=== PATIENT | female | born 1990 | race Caucasian/White ===

== ENCOUNTER 2016-07-17 07:30 | Inpatient (IN) | payer OTHER ==
[~2016-07-17] VITALS: Ht 177.8 cm; Wt 84.4 kg
[2016-07-26] VITALS (9 sets, daily range): BP systolic 97–133; RESP 16; TEMP 97.1; Ht 177.8 cm; Wt 84.4 kg
[2016-07-26] MEDS ORDERED: FAMOTIDINE 20 MG INJ IV PRN (08:20)
[2016-07-26] MEDS ORDERED: CLINDAMYCIN 900 MG in DEXTROSE 5% 50 ML IV PRN (08:20)
[2016-07-26] MEDS ORDERED: LACT RINGERS 1,000 ML IV SCH (08:20)
[2016-07-26] MEDS ORDERED: ONDANSETRON 4 MG VIAL IV PUSH PRN (08:20)
[2016-07-26] MEDS ORDERED: TERBUTALINE 1 MG/ML VIAL SUBQ PRN (08:20)
[2016-07-26] MEDS ORDERED: LIDOCAINE 1% BUFFERED 1 ML SYR INTRADERM PRN (08:20)
[2016-07-26] MEDS ORDERED: LIDOCAINE 1% 30 ML PF INFILTRATE ONE (08:20)
[2016-07-26] MEDS ORDERED: OXYTOCIN 15 UNITS/250 ML NS 250 ML IV SCH ×2 (08:20)
[2016-07-26] MEDS ORDERED: ACETAMINOPHEN 325 MG TAB PO PRN (08:20)
[2016-07-26] MEDS ORDERED: METOCLOPRAMIDE 10 MG/2 ML VIAL IV PUSH PRN (08:20)
[2016-07-26] MEDS ORDERED: ALU/MAG/SIM 30 ML UDC PO PRN (08:20)
[2016-07-26] MEDS ORDERED: PROMETHAZINE 25 MG/ML VIAL IV PRN (08:20)
[2016-07-26] MEDS ORDERED: PHARMACY TO DOSE GENTAMICIN IV PRN (08:20)
[2016-07-26] MEDS ORDERED: FAMOTIDINE 20 MG TAB PO PRN (08:20)
[2016-07-26] MEDS ORDERED: **NOTE TO NURSE XX SCH (09:00)
[2016-07-26] MEDS ORDERED: [UNRECOGNIZED DRUG - REMARK] XX SCH (11:18)
[2016-07-26] MEDS ORDERED: ROPIV/FENT 0.2%-2MCG/ML 100 ML EPIDURAL ONE (11:38)
[2016-07-26] MEDS ORDERED: FENTANYL 100 MCG/2 ML AMP ONE (11:39)
[2016-07-26] MEDS ORDERED: GENTAMICIN 420 MG in SODIUM CHLORIDE 0.9% 100 ML IV PRN (11:50)
[2016-07-26] MEDS ORDERED: ROPIV/FENT 0.2%-2MCG/ML 100 ML EPIDURAL SCH (12:25)
[2016-07-26] MEDS ORDERED: LACT RINGERS 500 ML IV ONE (12:25)
[2016-07-26] MEDS ORDERED: LACT RINGERS 500 ML IV PRN (12:25)
[2016-07-26] MEDS ORDERED: SODIUM CHLORIDE 0.9% 500 ML IV PRN (12:25)
[2016-07-26] MEDS ORDERED: **ONLY ANESTEHSIA MAY ORDER OPIATES WHILE ON EPIDURAL XX SCH (12:25)
[2016-07-26] MEDS ORDERED: FENTANYL 100 MCG/2 ML AMP EPIDURAL ONE (12:25)
[2016-07-26] MEDS ORDERED: BISACODYL 10 MG SUPP RECTAL PRN (17:05)
[2016-07-26] MEDS ORDERED: DERMOPLAST SPRAY TOPICAL PRN (17:05)
[2016-07-26] MEDS ORDERED: ASTRINGENT MED PADS 40'S TOPICAL PRN (17:05)
[2016-07-26] MEDS ORDERED: ZOLPIDEM 5 MG TAB PO PRN (17:05)
[2016-07-26] MEDS ORDERED: SALINE FLUSH 10 ML FLUSH PRN (17:05)
[2016-07-26] MEDS ORDERED: Ibuprofen 600 MG TAB ONE (17:19)
[2016-07-26] MEDS ORDERED: DERMOPLAST SPRAY TOPICAL ONE (17:19)
[2016-07-26] MEDS ORDERED: ASTRINGENT MED PADS 40'S TOPICAL ONE (17:19)
[2016-07-26] MEDS: Ibuprofen 600 MG TAB PO SCH (17:36)
[2016-07-26] MEDS: SALINE FLUSH 10 ML FLUSH SCH (19:52)
[2016-07-27] MEDS: Ibuprofen 600 MG TAB PO SCH ×4 (00:44→18:09)
[2016-07-27] MEDS: MAG HYDROX 30 ML UDC PO PRN ×2 (00:44→09:42)
[2016-07-27 01:53] VITALS: BP_SYST 105; RESP 17; TEMP 97.3
[2016-07-27 05:26] VITALS: BP_SYST 112; RESP 16; TEMP 97.5
[2016-07-27] MEDS: SODIUM CHLORIDE 0.9% FLUSH BAG 500 ML IV SCH (06:00)
[2016-07-27] MEDS: SALINE FLUSH 10 ML FLUSH SCH ×2 (08:00→20:00)
[2016-07-27 09:26] VITALS: BP_SYST 104; RESP 18; TEMP 98.7
[2016-07-27] MEDS: DOCUSATE SOD 100 MG CAP PO SCH (09:42)
[2016-07-27 13:46] VITALS: BP_SYST 100; RESP 16; TEMP 97.8
[2016-07-27 17:51] VITALS: BP_SYST 103; RESP 18; TEMP 97.5
[2016-07-28 05:36] VITALS: BP_SYST 107; RESP 16; TEMP 97.4
[2016-07-28] MEDS: Ibuprofen 600 MG TAB PO SCH ×2 (05:37)
[2016-07-28] MEDS: SODIUM CHLORIDE 0.9% FLUSH BAG 500 ML IV SCH (06:00)
[2016-07-28] MEDS: SALINE FLUSH 10 ML FLUSH SCH (08:00)
[2016-07-28] MEDS: DOCUSATE SOD 100 MG CAP PO SCH (08:18)
[2016-07-28 09:00] VITALS: BP_SYST 109; RESP 16; TEMP 98
[2016-07-28 12:59] VITALS: BP_SYST 109; RESP 16; TEMP 98
== END 2016-07-28 13:29 | disposition home or self-care (01) | DRG 775 ==
LOC: LD 07-26 07:37 → OB 07-26 17:38
PROVIDERS: ADMIT Obstetrics & Gynecology; ATTEND Obstetrics & Gynecology
PROC: 3E033VJ Introduction of Other Hormone into Peripheral Vein, Percutaneous Approach (ICD-10-PCS; principal; 2016-07-26)
PROC: 10E0XZZ Delivery of Products of Conception, External Approach (ICD-10-PCS; 2016-07-26)
PROC: 10907ZC Drainage of Amniotic Fluid, Therapeutic from Products of Conception, Via Natural or Artificial Opening (ICD-10-PCS; 2016-07-26)
PROC: 0W8NXZZ Division of Female Perineum, External Approach (ICD-10-PCS; 2016-07-26)
DX: O48.0 Post-term pregnancy (principal); O36.63X0 Maternal care for excessive fetal growth, third trimester, not applicable or unspecified; Z3A.40 40 weeks gestation of pregnancy; Z37.0 Single live birth
CPT/HCPCS: 82803; 85025